=== PATIENT | female | born 1995 | race Caucasian/White ===

== ENCOUNTER 2018-12-16 13:26 | Emergency (ER) | payer MEDICAID, SELFPAY ==
[2018-12-16 13:27] VITALS: BP 119/73; PULSE 93; RESP 14; TEMP 36.6; O2SAT 95; BMI 23.5
[2018-12-16 16:31] LABS: Chlamydia Trachomatis by PCR POSITIVE (Negative); Neisserai gonorrhoeae by PCR Positive (Negative); Probe Check PASS
== END 2018-12-16 15:49 | disposition left against medical advice (07) ==
LOC: ED 15:42
PROVIDERS: Emergency Provider Emergency Medicine
DX: Z53.21 Procedure and treatment not carried out due to patient leaving prior to being seen by health care provider (principal)
CPT/HCPCS: 87491; 87591

== ENCOUNTER 2018-12-20 07:24 | Emergency (ER) | payer MEDICAID, SELFPAY ==
[2018-12-20 07:26] VITALS: BP 136/69; PULSE 109; RESP 14; TEMP 36.6; O2SAT 97; BMI 26.6
--- NOTE | 2018-12-20 08:04 | ED.VISSUMM ---
- ER Visit Summary Date of Service: 12/20/18 Chief Complaint: Test for gonorrhea and Chlamydia positive History of Present Illness: The patient is a 23 F who was seen on December 17. Patient left prior to treatment. Patient was contacted and informed that her test for gonorrhea and chlamydia were positive. She returns for treatment. She has no antibiotic allergies. She denies fever, chills night sweats. She denies abdominal pain, nausea, vomiting diarrhea. Does report vaginal discharge. Denies dysuria, frequency, urgency or hematuria. Denies back pain or flank pain. She states she had some discomfort on pelvic exam performed Thursday. She reports history of STD in the past. She denies headache, photophobia, neck pain or neck stiffness. She denies rash. She denies joint pain or swelling. Physical Examination: Vital signs noted and heart rate is elevated 109. HEENT exam is unremarkable. Heart is regular without murmur, gallop or rub. S1 and S2 are normal. Lungs are clear to auscultation with good movement of air bilaterally. Abdomen soft nontender bowel sounds present normal. There is no CVA tenderness noted. There is no inguinal lymphadenopathy. Test Results: GC and completely test positive from December 17 Emergency Department Course and Treatment: Patient will receive Rocephin 200 mg IM and first dose of doxycycline. Patient states she does not have a prescription card. Consult was placed to case management to assist with treatment i.e. expensive medication Treatment Plan: 10-day course of doxycycline Disposition: Discharge to home and follow-up with OB Impression: STD secondary to gonorrhea and chlamydia This note was generated with [employer] dictation software. It may contain incorrect words, spelling, and punctuation that were not noted in review of the chart prior to signing ED Disposition - Plan for ED Patient: Disposition: Home or Assisted Living Instructions: ED Gonorrhea Female, ED Chlamydia Female Prescriptions: Doxycycline 100 mg PO BID #20 cap Referrals: Care Physician,No Primary [Primary Care Provider] - Neha Funes DO [STAFF PHYSICIAN] - 1 Week
[2018-12-20] MEDS: Doxycycline 100 MG CAPSULE PO (08:52)
[2018-12-20] MEDS: Ceftriaxone 500 MG Vial 250 MG IM (08:53)
[2018-12-20 09:27] VITALS: PULSE 86; RESP 16; O2SAT 98
== END 2018-12-20 09:28 | disposition home or self-care (01) ==
LOC: ED 08:16
PROVIDERS: Emergency Provider Emergency Medicine
DX: A56.8 Sexually transmitted chlamydial infection of other sites (principal); A54.9 Gonococcal infection, unspecified; Z86.19 Personal history of other infectious and parasitic diseases; Z72.0 Tobacco use
CPT/HCPCS: 96372; 99283

== ENCOUNTER 2020-12-03 01:54 | Emergency (ER) | payer MEDICAID, SELFPAY ==
[2020-12-03 01:56] VITALS: BP 151/98; PULSE 88; RESP 18; TEMP 35.9; O2SAT 100; BMI 25.2
--- NOTE | 2020-12-03 02:02 | ED.VIS.GEN ---
History of Present Illness Chief Complaint: Overdose Informant: Patient Narrative: Is a 25-year-old female arriving via EMS after an overdose. Patient was using IV heroin when she became apneic and unresponsive. Bystander gave her Narcan and perform chest compressions. 911 was called. Police arrived and gave an additional 2 mg of intranasal Narcan the patient had return of respirations and consciousness. Patient is brought in for medical clearance. Patient denies any complaints at this time to states she is cold. She states she uses IV heroin. Denies any other drug use. States she has overdosed in the past. Past Medical History - Allergies and Home Meds Allergies/Adverse Reactions: Allergies No Known Allergies Allergy (Verified 12/03/20 01:55) Primary Care Physician: Care Physician,No Primary [Primary Care Provider] - Past Medical History: - - IV drug abuse, opioid dependency Surgical History: noncontributory Smoking Status: Current every day smoker Review of Systems General: Denies: Chills, Fever, Sweats Eyes: Denies: Visual changes - bilaterally, Diplopia ENT: Denies: Rhinorrhea, Sore throat Cardiovascular: Denies: Chest pain, Palpitations Respiratory: Denies: Dyspnea, Cough, Dyspnea on exertion Gastrointestinal: Denies: Abdominal pain, Nausea, Vomiting, Diarrhea, Melena, Hematochezia Genitourinary: Denies: Dysuria, Hematuria, Frequency Musculoskeletal: Denies: Back pain, Extremity Pain Skin: Denies: Rash, Wounds Neurological: Denies: Headache, Weakness, Numbness Physical Exam Vital Signs/Narrative: Vital Signs Temp Pulse Resp BP Pulse Ox 12/03/20 01:56 96.6 F L 88 18 151/98 H 100 Inital Vital Signs reviewed: Yes General: Well nourished, Well developed, No Acute Distress, - - Patient shivering Head: Normocephalic, Atraumatic Eyes: Perrl, EOMI ENT: Moist mucous membranes, No rhinorrhea Neck: Supple, Nontender Cardiovascular: Regular rate, Regular rhythm, No murmurs Respiratory: No distress, CTA bilaterally, Chest nontender, - - No chest wall crepitus. Negative for: Chest tenderness Abdomen: Soft, Nontender, Nondistended, Normal bowel sounds Back: Nontender, Normal Inspection Extremities: Nontender, No edema Skin: Normal color, No rash Neurological: Alert, Oriented x3, Cranial nerves II-XII grossly intact, Normal Strength, Normal Sensation Psychological: Normal affect, Normal Mood Diagnostic/Tx/Re-eval - Medical Decision Making Patient is evaluated for medical clearance after drug overdose. Patient admits to using IV heroin. She received a total of 4 mg IV Narcan. Bystander CPR was performed however it is not clear if patient actually had loss of pulses. She was apneic per report but paramedics states that she was not blue. Patient currently denies any complaints. We will get a chest x-ray as she did receive bystander CPR to evaluate for possible pneumothorax. Patient's vital signs are stable. Will monitor for 1 hour and then patient be released into police custody. ED Disposition - Plan for ED Patient: Disposition: Home or Assisted Living Diagnosis: Accidental heroin overdose Instructions: ED Overdose, Opiate Referrals: [facility] [STAFF PHYSICIAN] -
--- NOTE | 2020-12-03 02:07 | RAD_ITS ---
STUDY: X-RAY CHEST REASON FOR EXAM: Female, 25 years old. Chest pain, overdose. TECHNIQUE: AP portable chest. COMPARISON: November 25, 2011. FINDINGS: The lungs are clear and expanded. There is no demonstrated pleural abnormality. Normal size heart. Normal mediastinum and meghan. Normal visualized pulmonary arteries. Normal visualized aortic arch and descending thoracic aorta. Normal visualized thoracic spine. Normal visualized ribs, clavicles, and shoulders. There is no demonstrated abnormality of the visualized soft tissue structures of the upper abdomen. RAD/Chest 1 View (Portable) IMPRESSION: Normal x-ray examination of the chest. Electronically Signed: Fuad Reyna MD at 2:49 EST , Service support ,
[2020-12-03 03:02] VITALS: BP 125/83; PULSE 96; RESP 14; O2SAT 100
== END 2020-12-03 03:09 | disposition home or self-care (01) ==
PROVIDERS: Emergency Provider Emergency Medicine
DX: T40.1X1A Poisoning by heroin, accidental (unintentional), initial encounter (principal); Y92.9 Unspecified place or not applicable; F17.200 Nicotine dependence, unspecified, uncomplicated
CPT/HCPCS: 71045; 99284

== ENCOUNTER 2021-02-20 20:44 | Emergency (ER) | payer MEDICAID, SELFPAY ==
[2021-02-20 20:44] VITALS: BP 125/70; PULSE 86; RESP 18; TEMP 35.9; O2SAT 96; BMI 27.8
--- NOTE | 2021-02-20 21:56 | RAD_ITS ---
STUDY: X-RAY CHEST REASON FOR EXAM: Female, 25 years old. cough, fatigue, sore throat and diarrhea. tested for covid a couple of days ago. TECHNIQUE: Single AP portable view of the chest. COMPARISON: December 03, 2020 FINDINGS: The lungs are clear and expanded. There is no demonstrated pleural abnormality. Normal size heart. Normal mediastinum and meghan. Normal visualized pulmonary arteries. Normal visualized aortic arch and descending thoracic aorta. Normal visualized thoracic spine. Normal visualized ribs, clavicles, and shoulders. There is no demonstrated abnormality of the visualized soft tissue structures of the upper abdomen. RAD/Chest 1 View (Portable) IMPRESSION: Normal x-ray examination of the chest. Electronically Signed: Mushtaq Chan MD at 22:21 EDT , Service support ,
--- NOTE | 2021-02-20 22:55 | ED.VIS.URI ---
History of Present Illness Chief Complaint: Cough Narrative: Patient presenting for evaluation secondary to upper respiratory symptoms. Patient has a history of mild intermittent asthma. She lives in a sober house. She was concerned because the director of the sober house was recently admitted with bilateral pneumonia. She states that she had a negative coronavirus test on Thursday, but she persistently has been having nasal congestion sore throat and a cough. She denies any significant shortness of breath nausea vomiting. She does report that she had some mild wheezing associated with this. Review of systems otherwise negative. Past Medical History - Allergies and Home Meds Allergies/Adverse Reactions: Allergies No Known Allergies Allergy (Verified 02/20/21 20:47) Primary Care Physician: Care Physician,No Primary [Primary Care Provider] - Prior records reviewed: Yes Past Medical History: - - Asthma Surgical History: noncontributory Smoking Status: Heavy Smoker (>10/day) Drugs: - - Currently sober Review of Systems All systems negative except as indicated General: Denies: Chills, Fever, Sweats Eyes: Denies: Visual changes - bilaterally, Diplopia ENT: Reports: Rhinorrhea, Sore throat Cardiovascular: Denies: Chest pain, Palpitations Respiratory: Reports: Cough Gastrointestinal: Denies: Abdominal pain, Nausea, Vomiting, Diarrhea, Melena, Hematochezia Genitourinary: Denies: Dysuria, Hematuria, Frequency Musculoskeletal: Denies: Back pain, Extremity Pain Skin: Denies: Rash, Wounds Neurological: Denies: Headache, Weakness, Numbness Physical Exam Vital Signs/Narrative: Vital Signs Temp Pulse Resp BP Pulse Ox 02/20/21 20:44 96.6 F L 86 18 125/70 H 96 Inital Vital Signs reviewed: Yes General: Well nourished, Well developed Head: Normocephalic, Atraumatic Eyes: Perrl, EOMI Ears: Normal external canal, TM's clear Nose: Normal Inspection, No Rhinorrhea Mouth/Throat: Normal Inspection, No Posterior Erythema Neck: Supple, Nontender Cardiovascular: Regular rate, Regular rhythm, No murmurs Respiratory: No distress, CTA bilaterally, Chest nontender Abdomen: Soft, Nontender, Nondistended, Normal bowel sounds Back: Nontender, Normal Inspection Extremities: Nontender, No edema Skin: Normal color, No rash Neurological: Alert, Oriented x3, Cranial nerves II-XII grossly intact, Normal Strength, Normal Sensation Psychological: Normal affect Diagnostic/Tx/Re-eval Chest X-Ray - ED: 1 View, Read by ED Physician, Normal Patient presented secondary to an upper respiratory type presentation. Rapid strep was obtained by nursing was found to be negative. Coronavirus testing was reobtained was found to be negative. 1 view chest x-ray by my personal review as well as radiology found to be negative. Patient does have an underlying history of asthma, she would did not have any wheezing on my exam but she does state that she has been having some mild wheezing and states that intermittently she will get bronchitis, so I do believe that she would benefit from a short course of steroids. Patient will be provided with a burst of steroids, she will follow-up with primary care. ED Disposition - Plan for ED Patient: Disposition: Home or Assisted Living Diagnosis: Upper respiratory tract infection Instructions: ED URI, Viral, No Abx (Adult) Prescriptions: Prednisone [Deltasone] 40 mg PO DAILY #8 tablet Transmission Status: Pending to [id number] Referrals: Elizabeth Braun [NON-STAFF] - As Needed
[2021-02-20 23:07] VITALS: PULSE 89; RESP 15; O2SAT 98
[2021-02-20] MEDS: predniSONE 20 MG Tablet 40 MG PO (23:07)
== END 2021-02-20 23:08 | disposition home or self-care (01) ==
PROVIDERS: Emergency Provider Emergency Medicine
DX: J06.9 Acute upper respiratory infection, unspecified (principal); J45.20 Mild intermittent asthma, uncomplicated
CPT/HCPCS: 71045; 87426; 87880; 99282